=== PATIENT | female | born 1960 | race Caucasian/White ===

== ENCOUNTER 2019-08-09 18:03 | Inpatient (IN) | payer OTHER ==
[~2019-08-09] VITALS: Ht 162.6 cm; Wt 64.9 kg
[2019-08-09 18:07] VITALS: BP 186/92
--- NOTE | 2019-08-09 18:11 | NUR ---
/O HIGH BS PER EMS, PT HAS NOT TAKEN MEDICATION IN PAST 2 WEEKS LAST BS FOR EMS WAS 528, CURRENTLY READS 'HIGH' ON GLUCOMETER IV INSERTED IN FIELD AND BOLUS STARTED . PT AWAKE ,ALERT, AMBULATORY, AFEBRILE. PMH-DM, HTN, ANXIETY Addendum: 08/09/19 at 1921 by MEDAD C/O HIGH BS PER EMS, PT HAS NOT TAKEN MEDICATION IN PAST 2 WEEKS LAST BS FOR EMS WAS 528, CURRENTLY READS 'HIGH' ON GLUCOMETER IV INSERTED IN FIELD AND BOLUS STARTED , PT IS AWAKE ,ALERT ,AMBULATORY WITH ASSISTANCE . C/O BLURRED VISION ON RT EYE .INC THIRST. PMH-DM, HTN, ANXIETY
[2019-08-09] MEDS ORDERED: NACL 0.9% 1,000 ML IV SCH (18:19)
[2019-08-09 19:07] LABS: BASOPHILS # (AUTO) 0.1 K/uL (0.00-0.22); EOSINOPHILS # (AUTO) 0.1 K/uL (0-0.4); EOSINOPHILS % (AUTO) 1.2 % (0.0-4.0); HEMATOCRIT 40.5 % (36-48); HEMOGLOBIN 12.9 g/dL (12.0-16.0); LYMPHOCYTES # (AUTO) 1.9 K/uL (2.5-16.5); LYMPHOCYTES % (AUTO) 26.3 % (20.5-51.1); MEAN CORPUSCULAR HEMOGLOBIN 28 pg (27-31); MEAN CORPUSCULAR HGB CONC 32 g/dL (33-37); MEAN CORPUSCULAR VOLUME 86.8 fL (80-94); MONOCYTES # (AUTO) 0.4 K/uL (0.8-1.0); MONOCYTES % (AUTO) 5.8 % (1.7-9.3); NEUTROPHILS # (AUTO) 4.7 K/uL (1.8-7.7); NEUTROPHILS % (AUTO) 65.7 % (42.2-75.2); PLATELET COUNT (AUTO) 358 K/uL (140-450); RED BLOOD CELL COUNT(AUTO) 4.66 MIL/uL (4.20-5.40); RED CELL DISTRIBUTION WIDTH 15.3 % (11.6-13.7); WHITE BLOOD COUNT (AUTO) 7.1 K/uL (4.8-10.8)
--- NOTE | 2019-08-09 19:13 | NUR ---
BS 547
[2019-08-09 19:17] LABS: APPEARANCE,URINE CLEAR (CLEAR); BILIRUBIN,URINE NEGATIVE (NEGATIVE); BLOOD, URINE NEGATIVE (NEGATIVE); COLOR,URINE YELLOW (YELLOW); LEUKOCYTE ESTERASE ,URINE NEGATIVE (NEGATIVE); NITRITE, URINE NEGATIVE (NEGATIVE); UGLUCOSE 3+ (NEGATIVE)
--- NOTE | 2019-08-09 19:21 | NUR ---
REPORT GIVEN TO MARISA SHARMA .
[2019-08-09 19:49] LABS: ALBUMIN 3.5 g/dL (3.4-5.0); ANION GAP 19.1 (8-16); CARBON DIOXIDE 22.6 mmol/L (21-32); CREATININE 1.1 mg/dL (0.6-1.3); TOTAL BILIRUBIN 0.2 mg/dL (0.0-1.0)
[2019-08-09 19:54] LABS: POTASSIUM 2.7 mmol/L (3.5-5.1)
[2019-08-09 19:54] LABS: RBC,URINE NONE SEEN /HPF (0-5); WBC,URINE NONE SEEN /HPF (0-5)
[2019-08-09] MEDS ORDERED: POTASSIUM CHLORIDE 10 MEQ TABER PO ONE (19:55)
--- NOTE | 2019-08-09 20:14 | NUR ---
DR JUDD MADE AWARE OF ACCUCHECK [address] JUDD, NO NEED FOR INSULIN AT THIS TIME, INPATIENT MD WILL CORRECT BLOOD GLUCOSE LATER.
--- NOTE | 2019-08-09 20:39 | NUR ---
XRAY AT BEDSIDE
[2019-08-09] MEDS ORDERED: MORPHINE SULFATE 2 MG/ML SYR IVP PRN (20:45)
[2019-08-09] MEDS ORDERED: DOCUSATE SODIUM 100 MG GELCAP PO PRN (20:45)
[2019-08-09] MEDS ORDERED: ACETAMINOPHEN 325 MG TAB PO PRN (20:45)
[2019-08-09] MEDS ORDERED: ZOLPIDEM 5 MG TAB PO PRN (20:45)
[2019-08-09] MEDS ORDERED: ONDANSETRON 4 MG/2 ML VIAL IM/IVP PRN (20:45)
[2019-08-09] MEDS ORDERED: DEXTROSE 50% 50 ML SYR IVP PRN (20:55)
[2019-08-09] MEDS: BLOOD GLUCOSE MONITORING 1 DEV DEV FS SCH (21:00)
--- NOTE | 2019-08-09 21:00 | NUR ---
ULTRASOUND AT BEDSIDE
[2019-08-09] MEDS ORDERED: KEP500 PO (21:22)
[2019-08-09] MEDS ORDERED: METO50TE2 PO (21:22)
[2019-08-09] MEDS ORDERED: METO25TA PO ×2 (21:25→21:29)
[2019-08-09] MEDS ORDERED: INSU-1343 SQ (21:33)
[2019-08-09] MEDS ORDERED: SITA50TA3 PO (21:33)
[2019-08-09] MEDS ORDERED: FAMO-90 PO (21:33)
[2019-08-09] MEDS ORDERED: INSU100S53 SC (21:33)
--- NOTE | 2019-08-09 21:45 | NUR ---
Patient will be admitted to care of DR COSTA. Admited to TELE. Will go to room 120A. Belongings list completed. Report to SETH SHARMA.
[2019-08-09] MEDS ORDERED: METOPROLOL 50 MG TAB PO SCH (22:00)
[2019-08-09] MEDS ORDERED: levETIRAcetam 500 MG TAB PO SCH (22:00)
--- NOTE | 2019-08-09 22:00 | NUR ---
RECEIVED BEDSIDE REPORT FROM ER NURSE. PATIENT IS AWAKE, ALERT, AND COOPERATIVE. ADMITTING DIAGNOSIS HYPERGLYCEMIA AND HYPOKALEMIA. RESPIRATION EVEN UNLABORED ON ROOM AIR. NO DISTRESS NOTED. VISUAL IMPAIRED. USE WHEEL WALKER. SKIN IS WARM AND DRY. IV PATENT AND INTACT. HEART RATE REGULAR. S1&S2 NOTED. LUNGS SOUNDS CLEAR ON AUSCULTATION. BOWEL SOUNDS PRESENT IN ALL QUADRANTS. ABDOMEN SOFT AND NON-TENDER. LAST BM 08/09/19. MRSA SCREEN DONE. VITALS TAKEN. BP 197/103 MD IS AWARE. ALL SAFETY MEASURES IN PLACE. ORIENT PATIENT TO THE ROOM, STAFF, AND CALL LIGHT. PLAN OF CARE DISCUSSED. BED IS AT LOW POSITION. CALL LIGHT WITHIN REACH AND VERBALIZES ITS USE. WILL CONTINUE TO MONITOR.
[2019-08-09 22:13] LABS: BARBITURATE, URINE NEG. ng/ml (NEG <=200); BENZODIAZEPINE, URINE NEG. ng/mL (NEG <=200); CANNABINOID, URINE NEG. ng/mL (NEG <=50); COCAINE, URINE NEG. ng/mL (NEG <=300); OPIATE, URINE NEG. ng/mL (NEG <=2000); PHENCYCLIDINE SCREEN,URINE NEG. ng/mL (NEG <=25)
[2019-08-09] MEDS: LORazepam 2 MG/ML VIAL IM/IVP PRN (22:16)
[2019-08-09] MEDS: NACL 0.9% 1,000 ML IV SCH (22:16)
[2019-08-09 22:23] LABS: CHOL/HDL RATIO 3.7 (1-4.5); MAGNESIUM 1.5 mg/dL (1.8-2.4); PHOSPHORUS 2.9 mg/dL (2.5-4.9); THYROID STIMULATING HORMONE 1.96 uIU/mL (0.34-3.74)
[2019-08-09] MEDS: INSULIN LISPRO SLIDING SCALE 100 UNITS/ML VIAL SUBQ PRN (22:29)
[2019-08-09] MEDS ORDERED: LORazepam 1 MG TAB PO PRN (22:30)
--- NOTE | 2019-08-09 22:30 | NUR ---
PATIENT BLOOD SUGAR 402. NOTIFIED DR. ARELLANO. ORDERED 10 UNITS OF HUMALOG. WILL CONTINUE TO MONITOR.
[2019-08-09 22:55] VITALS: BP 197/103
[2019-08-09] MEDS ORDERED: POTASSIUM CHLORIDE 10 MEQ TABER PO SCH (23:00)
[2019-08-10] VITALS: BP 168/88
[2019-08-10] MEDS ORDERED: MAG SULF 2000 MG/WATER PREMIX 50 ML IV ONE
--- NOTE | 2019-08-10 00:10 | NUR ---
VITALS WERE TAKEN. PATIENT IN STABLE CONDITION. NO DISTRESS NOTED. WILL CONTINUE TO MONITOR.
--- NOTE | 2019-08-10 00:30 | NUR ---
PATIENT ACCIDENTALLY PULLED HER IV. NO ACTIVE BLEEDING NOTED. CANNULA TIP INTACT. INSERTED NEW ONE TO THE LEFT FOREARM 22G. WILL CONTINUE TO MONITOR.
--- NOTE | 2019-08-10 02:37 | NUR ---
CHECKED PATIENT. PATIENT SLEEPING RESPIRATION EVEN UNLABORED ON ROOM AIR. NO DISTRESS NOTED. WILL CONTINUE TO MONITOR.
[2019-08-10 04:00] VITALS: BP 151/82
--- NOTE | 2019-08-10 04:15 | NUR ---
VITALS WERE TAKEN. PATIENT IN STABLE CONDITION. NO DISTRESS NOTED. WILL CONTINUE TO MONITOR.
[2019-08-10] MEDS: INSULIN LISPRO SLIDING SCALE 100 UNITS/ML VIAL SUBQ PRN ×4 (06:25→20:58)
[2019-08-10] MEDS: BLOOD GLUCOSE MONITORING 1 DEV DEV FS SCH ×4 (06:50→20:55)
--- NOTE | 2019-08-10 07:26 | NUR ---
ENDORSED PATIENT TO DAY SHIFT NURSE. PATIENT IN STABLE CONDITION
--- NOTE | 2019-08-10 07:30 | NUR ---
RECEIVED BEDSIDE REPORT FROM NIGHT NURSE. PT IS ASLEEP, ABLE TO AROUSE. RESPIRATIONS EVEN AND UNLABORED. IV INTACT AND PATENT TO LEFT FOREARM 22G WITH IVF NS INFUSING @ 60ML/HR. NO S/S OF DISTRESS NOTED. BED ALARM ON. BED IN LOW POSITION. CALL LIGHT WITHIN REACH.
[2019-08-10 08:00] VITALS: BP 154/98
[2019-08-10] MEDS: levETIRAcetam 500 MG TAB PO SCH ×2 (08:19→20:52)
[2019-08-10] MEDS: METOPROLOL 25 MG TAB PO SCH ×2 (08:20→20:52)
--- NOTE | 2019-08-10 08:31 | NUR ---
PT IN BED, ALERT AND AWAKE, FINISHED EATING BREAKFAST. AM MEDICATIONS GIVEN, TOLERATED WELL. NO S/S OF DISTRESS NOTED. LFA IV INTACT AND PATENT WITH IVF NS INFUSING @ 60ML/HR. BED ALARM ON. CALL LIGHT WITHIN REACH.
[2019-08-10] MEDS ORDERED: INSULIN LANTUS 100 UNITS/ML 10 ML VIAL SUBQ SCH (09:00)
--- NOTE | 2019-08-10 09:40 | NUR ---
PT AMBULATED TO THE RESTROOM WITH STEADY GAIT. IV SITE OBSERVED TO BE LEAKING, ASSESSED IV AND NO INFILTRATION NOTED, BLOOD RETURN NOTED, IV IS INTACT AND PATENT.
[2019-08-10 10:07] LABS: BASOPHILS # (AUTO) 0.1 K/uL (0.00-0.22); EOSINOPHILS # (AUTO) 0.1 K/uL (0-0.4); EOSINOPHILS % (AUTO) 1.6 % (0.0-4.0); HEMATOCRIT 40.2 % (36-48); HEMOGLOBIN 12.9 g/dL (12.0-16.0); LYMPHOCYTES % (AUTO) 24.9 % (20.5-51.1); MEAN CORPUSCULAR HEMOGLOBIN 28 pg (27-31); MEAN CORPUSCULAR HGB CONC 32 g/dL (33-37); MONOCYTES # (AUTO) 0.4 K/uL (0.8-1.0); MONOCYTES % (AUTO) 5.2 % (1.7-9.3); NEUTROPHILS # (AUTO) 5.3 K/uL (1.8-7.7); NEUTROPHILS % (AUTO) 67.3 % (42.2-75.2); PLATELET COUNT (AUTO) 327 K/uL (140-450); RED BLOOD CELL COUNT(AUTO) 4.67 MIL/uL (4.20-5.40); RED CELL DISTRIBUTION WIDTH 15.1 % (11.6-13.7); WHITE BLOOD COUNT (AUTO) 7.9 K/uL (4.8-10.8)
[2019-08-10 10:23] LABS: CARBON DIOXIDE 25.3 mmol/L (21-32); CREATININE 0.6 mg/dL (0.6-1.3); POTASSIUM 3.3 mmol/L (3.5-5.1)
[2019-08-10 10:33] LABS: MAGNESIUM 1.7 mg/dL (1.8-2.4); PHOSPHORUS 1.8 mg/dL (2.5-4.9)
--- NOTE | 2019-08-10 11:36 | NUR ---
BS 294, HUMALOG COVERAGE GIVEN WITH 6 UNITS. PT IS AWAKE, ALERT AND ORIENTED X4. DENIES ANY PAIN OR DISCOMFORT. IV INTACT AND PATENT WITH IVF NS INFUSING SING @60ML/HR. CALL LIGHT WITHIN REACH.
[2019-08-10 12:00] VITALS: BP 147/76
[2019-08-10] MEDS: NACL 0.9% 1,000 ML IV SCH (12:15)
--- NOTE | 2019-08-10 12:45 | NUR ---
DR. HERNANDEZ MADE AWARE, PATIENT'S POTASSIUM LEVEL 3.3. AWAITING FOR ORDERS.
--- NOTE | 2019-08-10 13:25 | NUR ---
PT EATING LUNCH AT THIS TIME. NO S/S OF DISTRESS NOTED. IV TO LEFT FOREARM INTACT AND PATENT WITH IVF NS INFUSING @60ML/HR. CALL LIGHT WITHIN REACH.
--- NOTE | 2019-08-10 14:13 | NUR ---
PATIENT HAS BEEN SCREENED AND CATEGORIZED MODERATE NUTRITION RISK. PATIENT WILL BE SEEN WITHIN 3-5 DAYS OF ADMISSION. 08/12/19 - 08/14/19 REJI GONZALES MBA, RD
[2019-08-10] MEDS: LORazepam 2 MG/ML VIAL IM/IVP PRN (15:07)
--- NOTE | 2019-08-10 15:07 | NUR ---
PT REPORTS ANXIETY, PT CRYING, STATED "I'M VERY ANXIOUS, I DON'T HAVE A PLACE TO STAY." ATIVAN GIVEN ORDERED FOR ANXIETY. WILL CONTINUE TO MONITOR.
[2019-08-10 16:00] VITALS: BP 144/78
[2019-08-10] MEDS: MAG SULF 2000 MG/WATER PREMIX 50 ML IV PRN (16:59)
--- NOTE | 2019-08-10 17:03 | NUR ---
MAGNESIUM RIDER STARTED FOR MG LEVEL 1.7. ORDERED PRN. WILL CONTINUE TO MONITOR. NO S/S OF DISTRESS NOTED AT THIS TIME. PT IS ALERT AND AWAKE. CALL LIGHT WITHIN REACH.
--- NOTE | 2019-08-10 18:22 | NUR ---
PT IS EATING DINNER. ALERT, AWAKE AND ORIENTED X4. NO S/S OF DISTRESS NOTED. IV INTACT AND PATENT TO LEFT FOREARM 22G. CALL LIGHT WITHIN REACH.
--- NOTE | 2019-08-10 18:58 | NUR ---
PT AMBULATED TO THE RESTROOM WITH 1 PERSON ASSIST. PT IS IN STABLE CONDITION. WILL ENDORSE TO NIGHT NURSE FOR CONTINUITY OF CARE.
--- NOTE | 2019-08-10 19:05 | NUR ---
RECEIVED BEDSIDE REPORT FROM DAY SHIFT NURSE. PATIENT IS SLEEPING AROUSABLE BY NAME AND TOUCH. RESPIRATION EVEN UNLABORED ON ROOM AIR. NO DISTRESS NOTED. SKIN IS WARM AND DRY. IV PATENT AND INTACT. PLAN OF CARE DISCUSSED. ALL SAFETY MEASURES IN PLACE. BED IS AT LOW POSITION. CALL LIGHT WITHIN REACH AND VERBALIZES ITS USE. WILL CONTINUE TO MONITOR.
[2019-08-10 20:00] VITALS: BP 132/77
--- NOTE | 2019-08-10 20:15 | NUR ---
INITIAL ASSESSMENT DONE. VITALS WERE TAKEN. PATIENT IN STABLE CONDITION. WILL CONTINUE TO MONITOR.
[2019-08-10] MEDS: ATORVASTATIN 20 MG TAB PO SCH (20:52)
--- NOTE | 2019-08-10 21:00 | NUR ---
ALL SCHEDULED MEDS WERE GIVEN PER ODER. NO ASE NOTED. WILL CONTINUE TO MONITOR.
[2019-08-10] MEDS: LORazepam 0.5 MG TAB PO PRN (21:05)
--- NOTE | 2019-08-10 21:05 | NUR ---
PATIENT IS ANXIOUS AND RESTLESS ASKING FOR ANTI-ANXIETY. PRN ATIVAN GIVEN PER ORDER. WILL CONTINUE TO MONITOR.
--- NOTE | 2019-08-10 22:39 | NUR ---
CHECKED PATIENT. PATIENT SLEEPING RESPIRATION EVEN UNLABORED ON ROOM AIR. NO DISTRESS NOTED. WILL CONTINUE TO MONITOR.
[2019-08-11] VITALS: BP 146/73
--- NOTE | 2019-08-11 00:20 | NUR ---
VITALS WERE TAKEN. PATIENT IN STABLE CONDITION. NO DISTRESS NOTED. WILL CONTINUE TO MONITOR.
--- NOTE | 2019-08-11 04:00 | NUR ---
CHECKED PATIENT. PATIENT SLEEPING RESPIRATION EVEN UNLABORED ON ROOM AIR. NO DISTRESS NOTED. WILL CONTINUE TO MONITOR.
[2019-08-11] MEDS: NACL 0.9% 1,000 ML IV SCH (04:11)
[2019-08-11] MEDS: INSULIN LISPRO SLIDING SCALE 100 UNITS/ML VIAL SUBQ PRN ×4 (06:42→21:36)
[2019-08-11] MEDS: BLOOD GLUCOSE MONITORING 1 DEV DEV FS SCH ×4 (06:59→21:00)
--- NOTE | 2019-08-11 07:14 | NUR ---
ENDORSED PATIENT IN DAY SHIFT NURSE. PATIENT IN STABLE CONDITION
--- NOTE | 2019-08-11 07:18 | NUR ---
RECEIVED REPORT FROM NIGHT NURSE. PT IN STABLE CONDITION. PT IN BED ASLEEP, EASILY AROUSABLE. RESPIRATION EVEN AND UNLABORED. BED ALARM ON. CALL LIGHT WITHIN REACH.
[2019-08-11 07:32] LABS: BASOPHILS # (AUTO) 0.1 K/uL (0.00-0.22); BASOPHILS % (AUTO) 1.1 % (0.0-2.0); EOSINOPHILS # (AUTO) 0.2 K/uL (0-0.4); HEMATOCRIT 36.7 % (36-48); HEMOGLOBIN 11.6 g/dL (12.0-16.0); LYMPHOCYTES # (AUTO) 2.4 K/uL (2.5-16.5); LYMPHOCYTES % (AUTO) 31.3 % (20.5-51.1); MEAN CORPUSCULAR HEMOGLOBIN 27 pg (27-31); MEAN CORPUSCULAR HGB CONC 32 g/dL (33-37); MEAN CORPUSCULAR VOLUME 86.3 fL (80-94); MONOCYTES # (AUTO) 0.4 K/uL (0.8-1.0); MONOCYTES % (AUTO) 5.3 % (1.7-9.3); NEUTROPHILS # (AUTO) 4.6 K/uL (1.8-7.7); NEUTROPHILS % (AUTO) 60.3 % (42.2-75.2); PLATELET COUNT (AUTO) 263 K/uL (140-450); RED BLOOD CELL COUNT(AUTO) 4.25 MIL/uL (4.20-5.40); RED CELL DISTRIBUTION WIDTH 15.1 % (11.6-13.7); WHITE BLOOD COUNT (AUTO) 7.6 K/uL (4.8-10.8)
[2019-08-11 07:44] LABS: ANION GAP 13.3 (8-16); CARBON DIOXIDE 24.1 mmol/L (21-32); CREATININE 0.6 mg/dL (0.6-1.3); POTASSIUM 3.4 mmol/L (3.5-5.1)
[2019-08-11 07:50] LABS: MAGNESIUM 1.5 mg/dL (1.8-2.4); PHOSPHORUS 2.7 mg/dL (2.5-4.9)
[2019-08-11 08:00] VITALS: BP 127/76
[2019-08-11] MEDS: SODIUM PHOS / POTASSIUM PHOS 1 PKT PDR PO SCH (08:41)
[2019-08-11] MEDS: LORazepam 0.5 MG TAB PO PRN ×3 (08:42→21:38)
[2019-08-11] MEDS: levETIRAcetam 500 MG TAB PO SCH ×2 (08:42→21:31)
[2019-08-11] MEDS: POTASSIUM CHLORIDE 10 MEQ TABER PO SCH (08:43)
[2019-08-11] MEDS: METOPROLOL 25 MG TAB PO SCH ×2 (08:43→21:31)
[2019-08-11] MEDS ORDERED: INSULIN NPH HUM/REG INSULIN HM 100 UNIT/ML 10 ML VIAL SUBQ SCH (08:46)
[2019-08-11] MEDS ORDERED: INSULIN LANTUS 100 UNITS/ML 10 ML VIAL SUBQ SCH (09:00)
[2019-08-11] MEDS: INSULIN LANTUS 100 UNITS/ML 10 ML VIAL SUBQ SCH (09:04)
--- NOTE | 2019-08-11 09:30 | NUR ---
AM MEDICATIONS GIVEN AND TOLERATED WELL. PT ALERT AND ORIENTED X4. PT ATE BREAKFAST. BED ALARM ON. NO S/S OF DISTRESS NOTED.
[2019-08-11] MEDS: MAG SULF 2000 MG/WATER PREMIX 50 ML IV PRN (11:24)
--- NOTE | 2019-08-11 11:25 | NUR ---
NOTED PATIENT'S MAGNESIUM LEVEL STILL ABNORMAL 1.5. WILL GIVE IV MAGNESIUM RIDER ORDERED PRN FOR ABNORMAL LEVEL NO GREATER THAN 1.7.
[2019-08-11] MEDS: HYDROcodone/APAP 5/325 MG 1 TAB TAB PO PRN ×2 (12:55→18:48)
--- NOTE | 2019-08-11 13:00 | NUR ---
PT IS ALERT AND ORIENTED X4. AMBULATES TO THE RESTROOM WITH 1 PERSON ASSIST. NO S/S OF DISTRESS NOTED. Addendum: 08/11/19 at 2021 by Nimco Gonzales RN DR. HERNANDEZ NOTIFIED OF PT C/O PAIN TO LEFT EYE. ALSO OBSERVED SWELLING TO LEFT EYE.
[2019-08-11] MEDS ORDERED: POTASSIUM CHLORIDE 10 MEQ TABER PO SCH (14:05)
[2019-08-11] MEDS ORDERED: MAG SULF 2000 MG/WATER PREMIX 100 ML IV PRN (14:05)
--- NOTE | 2019-08-11 14:07 | NUR ---
Band Leader Note: Basic Screen: Yes High Risk DC Screen Yes Name: PAOLA ELI Home Relationship: SISTER Pre-Admission Living Arrangements: Lives with Other Current Home Health Name/Tel: N/A Current DME/02 Name/Tel: [facility] Current Hospice Name/Tel: N/A Current Dialysis Name/Tel: N/A Healthcare Decision Maker: Patient Advance Directive No - REFUSED Information Taught: Community Resources Person Taught: Patient Teaching Tools: Community Resources Verbal Factors Affecting Learning: None Participation Level: Active Evaluation: Verbalizes Understanding Discipline: Case Mgt/Social Svcs Tentative Discharge Plan/Destination: No Needs Identified Will require assistance post discharge: No Referred to Utility Worker Production: No Tentative Discharge Plan Summary: Patient is a 58-year-old female admitted for hyperglycemia and hypokalemia. Patient has PMHX of diabetes and hypertension. Patient was admitted from home. ALISA met with patient at bedside to verify demographics. Patient stated she has been staying with a friend but is not sure she is able to return. Patient reports no mental health history and no substance abuse history. Patient stated she is looking for housing currently. SW provided resources to room and boards and homeless resources. Patient requested for ALISA to contact emergency contact Paola Eli [phone]. ALISA contacted Paola to let her know of patient's hospitalization. Paola stated she would visit patient 08/12/2019 and assist her in coordinating living arrangements. Paola stated that patient receives $980 monthly through [employer]. Patient's plan after discharge is to find a room and board or seek a group home. No further needs identified. Signature: RASHMI Michelle Date: Aug 11, 2019 Time: 14:06
[2019-08-11] MEDS ORDERED: MAG SULF 2000 MG/WATER PREMIX 50 ML IV PRN ×3 (14:14→14:39)
--- NOTE | 2019-08-11 15:48 | NUR ---
PT IS ALERT, AWAKE, VERBALLY RESPONSIVE. NO S/S OF DISTRESS NOTED. PT HAVE EPISODES OF ANXIETY, REQUIRING ATIVAN PO. PT IS CALM AND COOPERATIVE AFTER RECEIVING ATIVAN. CALL LIGHT WITHIN REACH.
[2019-08-11 16:00] VITALS: BP 153/83
[2019-08-11] MEDS: INSULIN NPH HUM/REG INSULIN HM 100 UNIT/ML 10 ML VIAL SUBQ SCH (17:29)
--- NOTE | 2019-08-11 18:48 | NUR ---
PT C/O PAIN, MEDICATED ORDERED PRN. PT ALERT AND VERBALLY RESPONSIVE. ASSISTED PT TO THE RESTROOM. PT BACK IN BED. BED ALARM ON. CALL LIGHT WITHIN REACH.
--- NOTE | 2019-08-11 19:00 | NUR ---
PT IN STABLE CONDITION. WILL ENDORSE TO NIGHT NURSE FOR CONTINUITY OF CARE.
--- NOTE | 2019-08-11 19:01 | NUR ---
RECEIVED PATIENT LAYING IN BED. AWAKE AND ALERT. ON ROOM AIR. NO DISTRESS NOTED. IV ACCESS ON LEFT FOREARM 22 GAUGE. PATENT AND INTACT. BED IN LOW. SAFETY MEASURES IN PLACE. INITIAL ASSESSMENT DONE. CALL LIGHT WITHIN PATIENT REACH. WILL CONTINUE TO MONITOR PATIENT.
--- NOTE | 2019-08-11 21:26 | NUR ---
ROUNDS DONE. PT SLEEPING COMFORTABLY AT THIS TIME. VISIBLE CHEST RISE AND FALL NOTED. WILL CONTINUE TO MONITOR PATIENT.
[2019-08-11] MEDS: ATORVASTATIN 20 MG TAB PO SCH (21:31)
[2019-08-12 00:15] VITALS: BP 132/74
--- NOTE | 2019-08-12 00:15 | NUR ---
VITALS TAKEN AT THIS TIME. CALL LIGHT WITHIN PATIENT REACH. WILL CONTINUE TO MONITOR PATIENT.
[2019-08-12] MEDS ORDERED: LORazepam 0.5 MG TAB PO ONE (00:55)
[2019-08-12] MEDS ORDERED: LORazepam 2 MG/ML VIAL IVP ONE (01:10)
--- NOTE | 2019-08-12 02:11 | NUR ---
MD ORDERED PRN ONE TIME DOSE OF ATIVAN IV PUSH DUE TO PATIENT YELLING AND HAVING ANXIETY THAT THE ORAL ATIVAN DOES NOT WORK ON HER. WILL CONTINUE TO MONITOR PATIENT.
[2019-08-12] MEDS ORDERED: BACITRACIN BOTH EYES SCH ×2 (04:00→09:53)
[2019-08-12] MEDS ORDERED: [UNRECOGNIZED DRUG - OTHER] BOTH EYES SCH ×2 (04:00→09:53)
[2019-08-12] MEDS ORDERED: CHLORHEXADINE GLUC 2% CLOTH TP SCH (04:35)
[2019-08-12] MEDS ORDERED: MUPIROCIN CA NASAL 2% 1GM TUBE NS SCH (04:35)
[2019-08-12] MEDS: INSULIN NPH HUM/REG INSULIN HM 100 UNIT/ML 10 ML VIAL SUBQ SCH (06:39)
[2019-08-12] MEDS: INSULIN LISPRO SLIDING SCALE 100 UNITS/ML VIAL SUBQ PRN ×2 (06:40→10:43)
[2019-08-12] MEDS: BLOOD GLUCOSE MONITORING 1 DEV DEV FS SCH ×2 (06:43→11:32)
--- NOTE | 2019-08-12 06:55 | NUR ---
PT IN STABLE CONDITION. CALL LIGHT WITHIN PATIENT REACH. WILL ENDORSE TO AM SHIFT NURSE FOR CONTINUITY OF CARE.
--- NOTE | 2019-08-12 07:05 | NUR ---
RECEIVED REPORT FROM NIGHT NURSE. PT IN BED WITH EYES CLOSED, AROUSABLE TO SPEECH, AAOX4. DENIES PAIN, NO DISTRESS NOTED. RESPIRATIONS EVEN AND UNLABORED ON ROOM AIR. IV PATENT AND ASYMPTOMATIC IN L FA 22G INFUSING PER ORDER. SKIN INTACT. CCHO 60G DIET ORDERED. BED IN LOW POSITION, SAFETY MEASURES IN PLACE. CALL LIGHT WITHIN REACH. WILL CONTINUE TO MONITOR.
[2019-08-12 07:28] LABS: MAGNESIUM 1.5 mg/dL (1.8-2.4); PHOSPHORUS 3.2 mg/dL (2.5-4.9)
[2019-08-12 07:32] LABS: BASOPHILS % (AUTO) 0.6 % (0.0-2.0); EOSINOPHILS # (AUTO) 0.1 K/uL (0-0.4); HEMATOCRIT 36.7 % (36-48); HEMOGLOBIN 11.9 g/dL (12.0-16.0); LYMPHOCYTES # (AUTO) 2.5 K/uL (2.5-16.5); LYMPHOCYTES % (AUTO) 32.8 % (20.5-51.1); MEAN CORPUSCULAR HEMOGLOBIN 28 pg (27-31); MEAN CORPUSCULAR HGB CONC 32 g/dL (33-37); MEAN CORPUSCULAR VOLUME 85.1 fL (80-94); MONOCYTES # (AUTO) 0.5 K/uL (0.8-1.0); NEUTROPHILS # (AUTO) 4.4 K/uL (1.8-7.7); NEUTROPHILS % (AUTO) 58.6 % (42.2-75.2); PLATELET COUNT (AUTO) 285 K/uL (140-450); RED BLOOD CELL COUNT(AUTO) 4.32 MIL/uL (4.20-5.40); RED CELL DISTRIBUTION WIDTH 14.4 % (11.6-13.7); WHITE BLOOD COUNT (AUTO) 7.5 K/uL (4.8-10.8)
[2019-08-12 07:39] LABS: ANION GAP 13.5 (8-16); CARBON DIOXIDE 23.2 mmol/L (21-32); CREATININE 0.6 mg/dL (0.6-1.3); POTASSIUM 3.7 mmol/L (3.5-5.1)
[2019-08-12 08:00] VITALS: BP 128/82
[2019-08-12] MEDS ORDERED: MAG SULF 2000 MG/WATER PREMIX 100 ML IV SCH (08:30)
[2019-08-12] MEDS ORDERED: DULoxetine 30 MG CAPDR PO SCH (09:00)
--- NOTE | 2019-08-12 09:00 | NUR ---
DC PLANN[age] YRS OLD FEMALE PATIENT WAS ADMITTED FROM HOME WITH A DX OF HYPERGLYCEMIA, HYPOKALEMIA BS 548 AND K+2.7 PT HAS A HX OF DM, HTN, SEIZURE AND OSTEOMYELITIS OF THE RIGHT FOOT . LACTIC ACID WAS 6.4 1L BOLUS GIVEN . PT WAS RECENTLY DISCHARGED FROM [facility] AND STAYED WITH HER FRIENDS HOUSE. PT SISTER RAMONE VALLE IS HELPING HER WITH LIVING ARRANGEMENT. ADMINISTERED IVF, LANTUS 10 UNITS SUBQ RESUME HOME MEDS MONITOR BP ,MAG RIDER AND K-RIDER GIVEN ,SEIZURE PRECAUTION IN PLACE. DC PLAN PER PT RECOMMENDATION CM TO FOLLOW. Addendum: 08/12/19 at 1216 by Jennifer Shepherd CM DC PLANNING SPOKE WITH THE PATIENT AT THE BED SIDE EXPLAIN THE IM LETTER AND CHOICE OF VENDOR .PT ST[facility]. PT WANTED TO GO TO [facility] . 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 NUMBER TO GIVE REPORT [phone] CALLED PT'S SISTER LEONARD [phone] LEFT A MESSAGE.
--- NOTE | 2019-08-12 09:58 | NUR ---
MEDICATIONS ADMINISTERED PER ORDER. PT TOLERATED WELL. NO DISTRESS NOTED. WILL CONTINUE TO MONITOR.
[2019-08-12] MEDS: HYDROcodone/APAP 5/325 MG 1 TAB TAB PO PRN (10:01)
[2019-08-12] MEDS: SODIUM PHOS / POTASSIUM PHOS 1 PKT PDR PO SCH (10:01)
[2019-08-12] MEDS: levETIRAcetam 500 MG TAB PO SCH (10:01)
[2019-08-12] MEDS: METOPROLOL 25 MG TAB PO SCH (10:01)
[2019-08-12] MEDS: POTASSIUM CHLORIDE 10 MEQ TABER PO SCH (10:21)
[2019-08-12] MEDS: INSULIN LANTUS 100 UNITS/ML 10 ML VIAL SUBQ SCH (10:41)
--- NOTE | 2019-08-12 11:54 | NUR ---
PT IN BED SLEEPING, NO DISTRESS NOTED. SAFETY MEASURES IN PLACE. CALL LIGHT WITHIN REACH. WILL CONTINUE TO MONITOR.
--- NOTE | 2019-08-12 13:32 | NUR ---
PT EXPRESSES FEELING ANXIETY. MEDICATED WITH PRN ATIVAN. WILL CONTINUE TO MONITOR.
[2019-08-12] MEDS: LORazepam 0.5 MG TAB PO PRN (13:36)
[2019-08-12] MEDS: NACL 0.9% 1,000 ML IV SCH ×2 (13:53)
[2019-08-12 15:17] VITALS: BP 148/85
[2019-08-12] MEDS ORDERED: DULO30EC PO (15:37)
[2019-08-12] MEDS ORDERED: HUM7030 SUBQ (15:37)
[2019-08-12] MEDS ORDERED: MUPI2CRE22 NS (15:37)
[2019-08-12] MEDS ORDERED: LANTUS SUBQ (15:37)
[2019-08-12] MEDS ORDERED: CHLO118S2 TP (15:40)
--- NOTE | 2019-08-12 16:50 | NUR ---
PT DISCHARGED AT THIS TIME. DISCHARGE, MEDICATION AND FOLLOWUP TEACHING GIVEN TO PT. VERBALIZED UNDERSTANDING. IV REMOVED WITH MINIMAL BLOOD LOSS AND LUMEN INTACT. ID BANDS REMOVED. BELONGINGS VERIFIED AND RETURNED TO PT. SKIN INTACT AND RESPIRATIONS EVEN AND UNLABORED UPON DISCHARGE, VITAL SIGNS STABLE. FLU AND PNA VACCINES NOT GIVEN, UP TO DATE. PT TRANSFERED TO [facility] VIA [facility].
== END 2019-08-12 16:50 | DRG 638 ==
LOC: MED 18:03 → MTU 20:49
PROVIDERS: ADMIT General Practice; ATTEND General Practice
DX: E11.00 Type 2 diabetes mellitus with hyperosmolarity without nonketotic hyperglycemic-hyperosmolar coma (NKHHC) (principal); E87.2 Acidosis; E11.65 Type 2 diabetes mellitus with hyperglycemia; E86.0 Dehydration; F32.9 Major depressive disorder, single episode, unspecified; E87.6 Hypokalemia; F41.9 Anxiety disorder, unspecified; E11.51 Type 2 diabetes mellitus with diabetic peripheral angiopathy without gangrene; E78.5 Hyperlipidemia, unspecified; F15.10 Other stimulant abuse, uncomplicated; E83.42 Hypomagnesemia; G40.909 Epilepsy, unspecified, not intractable, without status epilepticus; I10 Essential (primary) hypertension; Z79.899 Other long term (current) drug therapy; Z90.49 Acquired absence of other specified parts of digestive tract; Z79.84 Long term (current) use of oral hypoglycemic drugs
CPT/HCPCS: 36415; 36600; 70486; 71045; 80048; 80053; 80305; 81001; 82150; 82803; 82948; 83036; 83605; 83690; 83735; 84100; 84134; 84443; 85025; 85610; 85730; 87040; 87081; 87086; 93925; 93970; 97116; 99285; J1644; J1815; J2060; J3475; J7030; Q0092